=== PATIENT | female | born 1960 | race Caucasian/White ===

== ENCOUNTER 2016-07-26 13:10 | Emergency (ER) | payer MEDICARE | END 2016-07-26 14:40 | disposition home or self-care (01) | LOC: ER1 13:10 | DX: J10.1 Influenza due to other identified influenza virus with other respiratory manifestations (principal); F17.210 Nicotine dependence, cigarettes, uncomplicated | CPT/HCPCS: 36415; 87081; 87880; 99283 ==

== ENCOUNTER → 2020-06-23 | Outpatient (CLI) | payer MEDICARE ==
[2020-06-23 10:32] LABS: HEMOGLOBIN 13.2 gm/dl (12.3-15.3); RED BLOOD COUNT 4.29 M/UL (4.00-5.10); WHITE BLOOD COUNT 5.8 K/UL (4.5-11.0)
[2020-06-23 12:47] LABS: BUN/CREATININE RATIO 23 (0-10)
== END ==
LOC: MAMO 10:10
PROVIDERS: Family Medicine
DX: Z12.31 Encounter for screening mammogram for malignant neoplasm of breast (principal); M54.5 Low back pain; M47.816 Spondylosis without myelopathy or radiculopathy, lumbar region; I10 Essential (primary) hypertension; G43.909 Migraine, unspecified, not intractable, without status migrainosus; N20.0 Calculus of kidney; E83.52 Hypercalcemia
CPT/HCPCS: 36415; 72110; 77063; 77067; 80053; 80061; 85027

== ENCOUNTER 2020-06-28 01:33 | Emergency (ER) | payer MEDICARE | END 2020-06-28 05:15 | disposition left against medical advice (07) | LOC: ER1 01:33 | DX: M54.9 Dorsalgia, unspecified (principal); R30.0 Dysuria; Z53.21 Procedure and treatment not carried out due to patient leaving prior to being seen by health care provider ==

== ENCOUNTER → 2020-08-24 | Outpatient (CLI) | payer MEDICARE | LOC: EMI 15:58 | DX: M54.5 Low back pain (principal); G57.12 Meralgia paresthetica, left lower limb; G44.89 Other headache syndrome; G43.009 Migraine without aura, not intractable, without status migrainosus; R20.0 Anesthesia of skin; R20.2 Paresthesia of skin; M51.27 Other intervertebral disc displacement, lumbosacral region; M48.07 Spinal stenosis, lumbosacral region | CPT/HCPCS: 70551; 72148 ==

== ENCOUNTER → 2020-09-02 | Outpatient (CLI) | payer MEDICARE | LOC: EMI 09:43 | DX: R94.02 Abnormal brain scan (principal); Q28.3 Other malformations of cerebral vessels | CPT/HCPCS: 70553; A9577 ==

== ENCOUNTER → 2021-04-21 | Outpatient (CLI) | payer MEDICARE | LOC: RAD 13:24 | DX: M48.061 Spinal stenosis, lumbar region without neurogenic claudication (principal); M51.36 Other intervertebral disc degeneration, lumbar region; N20.0 Calculus of kidney | CPT/HCPCS: 72100 ==

== ENCOUNTER → 2021-06-21 | Outpatient (CLI) | payer MEDICARE | LOC: RAD 13:34 | DX: M54.16 Radiculopathy, lumbar region (principal); Z98.1 Arthrodesis status; N28.89 Other specified disorders of kidney and ureter | CPT/HCPCS: 72100 ==

== ENCOUNTER → 2021-07-27 | Outpatient (CLI) | payer MEDICARE | LOC: KOH-I 08:18 | DX: R94.5 Abnormal results of liver function studies (principal); K83.8 Other specified diseases of biliary tract; Z90.49 Acquired absence of other specified parts of digestive tract | CPT/HCPCS: 76705 ==

== ENCOUNTER → 2021-10-12 | Day surgery (SDC) | payer MEDICARE ==
[~2021-10-12] MED LIST: AJOVY225 MG/1.5 SQ; GABAPENTIN400 MG PO; OXYCODON-ACETA1 EAC1 PO; UBRELVY100 MG PO
== END | disposition home or self-care (01) ==
LOC: OR 07:33
DX: K64.1 Second degree hemorrhoids (principal); K64.4 Residual hemorrhoidal skin tags; E78.00 Pure hypercholesterolemia, unspecified
CPT/HCPCS: J7040

== ENCOUNTER → 2022-01-07 | Emergency (ER) | payer MEDICARE ==
[2022-01-07 14:54] LABS: HEMOGLOBIN 11.3 gm/dl (12.3-15.3); RED BLOOD COUNT 3.8 M/UL (4.00-5.10); WHITE BLOOD COUNT 17.6 K/UL (4.5-11.0)
[2022-01-07 15:25] LABS: BUN/CREATININE RATIO 22 (0-10)
== END | disposition home or self-care (01) ==
LOC: ER1 11:31
PROVIDERS: Physician Assistant
DX: N13.2 Hydronephrosis with renal and ureteral calculous obstruction (principal); F17.210 Nicotine dependence, cigarettes, uncomplicated; Z20.822 Contact with and (suspected) exposure to COVID-19
CPT/HCPCS: 0240U; 70450; 72125; 72128; 72131; 80053; 81001; 85025; 87077; 87086; 87186; 96374; 96375; 99284; J0696; J2270; J2405